=== PATIENT | male | born 1985 | race Caucasian/White ===

== ENCOUNTER 2017-12-06 14:48 | Emergency (ER) | payer SELFPAY ==
--- NOTE | 2017-12-06 15:17 | EDM.PDOC ---
ED HPI GENERAL MEDICAL PROBLEM - General Chief Complaint: Upper Extremity Injury/Pain Stated Complaint: LEFT SHOULDER PAIN Time Seen by Provider: 12/06/17 15:12 Source of Information: Reports: Patient History Limitations: Reports: No Limitations - History of Present Illness INITIAL COMMENTS - FREE TEXT/NARRATIVE: Awoke with left shoulder pain this morning. Possible work injury, was "pulling metal pipe" yesterday, did not experience pain though until this morning. Pain worse with movement. Did not take OTC medication. Patient is left hand dominant. Onset: Today Duration: Day(s): (1) Location: Reports: Upper Extremity, Left Severity: Mild Associated Symptoms: Denies: Chest Pain Treatments TAXICAB DISPATCHER: Denies: Acetaminophen, NSAIDS Past Medical History Cardiovascular History: Reports: None Musculoskeletal History: Reports: None Psychiatric History: Reports: Anxiety Social & Family History - Tobacco Use Smoking Status *Q: Never Smoker - Alcohol Use Alcohol Use History: Yes Alcohol Use Frequency: Rarely - Recreational Drug Use Recreational Drug Use: Yes Recreational Drug Type: Reports: Marijuana/Hashish Review of Systems - Review of Systems Review Of Systems: ROS reveals no pertinent complaints other than HPI. ED EXAM, GENERAL - Physical Exam Exam: See Below Exam Limited By: No Limitations General Appearance: Alert, WD/WN, No Apparent Distress Ears: Normal External Exam Nose: Normal Inspection Throat/Mouth: No Airway Compromise Head: Atraumatic, Normocephalic Neck: Full Range of Motion Respiratory/Chest: No Respiratory Distress, Lungs Clear, Normal Breath Sounds Cardiovascular: Regular Rate, Rhythm, No Murmur Peripheral Pulses: 2+: Radial (L) Extremities: Other (point tenderness to left anterior shoulder, no deformity, decreased active ROM due to pain) Neurological: Alert, Oriented, Normal Cognition, No Motor/Sensory Deficits Psychiatric: Normal Affect, Normal Mood Skin Exam: Warm, Dry, Intact, Normal Color, No Rash Course - Orders/Labs/Meds Orders: Active Orders 24 hr Category Date Time Status Shoulder Comp Lt [CR] Stat Exams 12/06/17 15:10 Ordered - Radiology Interpretation Free Text/Narrative:: Left Shoulder XR: NAD Departure - Departure Time of Disposition: 15:27 Disposition: Home, Self-Care 01 Condition: Good Clinical Impression: Left shoulder strain Qualifiers: Encounter type: initial encounter Qualified Code(s): S46.912A - Strain of unspecified muscle, fascia and tendon at shoulder and upper arm level, left arm , initial encounter - Discharge Information *PRESCRIPTION DRUG MONITORING PROGRAM REVIEWED*: No *COPY OF PRESCRIPTION DRUG MONITORING REPORT IN PATIENT ANT: Not Applicable Instructions: Subscapularis Tendon Injury Forms: ED Department Discharge, ED Return to Work/School Form Additional Instructions: OTC Ibuprofen 600mg every 6 hours as needed. Do rotator cuff strengthening exercises. Off work today. Follow up with orthopedic surgery in 1 week if symptoms don't improve. - My Orders Last 24 Hours: My Active Orders 12/06/17 15:10 Shoulder Comp Lt [CR] Stat - Assessment/Plan Last 24 Hours: My Active Orders 12/06/17 15:10 Shoulder Comp Lt [CR] Stat
--- NOTE | 2017-12-07 10:50 | CR ---
INDICATION: Pain that started yesterday, no known injury. LEFT SHOULDER: Three views of the left shoulder were obtained 12/06/2017 - no comparisons. No bone or joint abnormality was identified. If symptoms persist, additional examination such as MRI of the shoulder, may be helpful. DALI
== END 2017-12-06 15:44 | disposition home or self-care (01) ==
LOC: FB.ED 14:48
DX: S46.912A Strain of unspecified muscle, fascia and tendon at shoulder and upper arm level, left arm, initial encounter (principal); X50.0XXA Overexertion from strenuous movement or load, initial encounter
CPT/HCPCS: 73030-LT; 99283

== ENCOUNTER 2017-12-28 17:59 | Emergency (ER) | payer SELFPAY ==
--- NOTE | 2017-12-28 19:57 | EDM.PDOC ---
ED HPI GENERAL MEDICAL PROBLEM - General Chief Complaint: Gastrointestinal Problem Stated Complaint: Diarrhea Time Seen by Provider: 12/28/17 19:55 Source of Information: Reports: Patient History Limitations: Reports: No Limitations - History of Present Illness INITIAL COMMENTS - FREE TEXT/NARRATIVE: Developed N/V/D at 3am today. Vomiting has resolved, diarrhea persists. Able to keep gatorade down. Feels generally weak. Denies abdominal pain. Onset: Today Duration: Day(s): (1) Severity: Mild - Related Data Allergies Allergy/AdvReac Type Severity Reaction Status Date / Time No Known Allergies Allergy Verified 12/06/17 15:33 Home Meds: Home Meds NK [No Known Home Meds] 12/06/17 [History] Past Medical History Other HEENT History: jaw surgery Cardiovascular History: Reports: None Musculoskeletal History: Reports: Fracture Other Musculoskeletal History: hx fx jaw Psychiatric History: Reports: Anxiety, Panic Attack Endocrine/Metabolic History: Reports: Obesity/BMI 30+ - Infectious Disease History Infectious Disease History: Reports: Chicken Pox - Past Surgical History HEENT Surgical History: Reports: Other (See Below) Other HEENT Surgeries/Procedures: jaw surgery Musculoskeletal Surgical History: Reports: None Social & Family History - Family History Family Medical History: Noncontributory - Tobacco Use Smoking Status *Q: Never Smoker - Caffeine Use Caffeine Use: Reports: Coffee, Energy Drinks - Alcohol Use Alcohol Use History: No - Recreational Drug Use Recreational Drug Use: No ED ROS GENERAL - Review of Systems Review Of Systems: ROS reveals no pertinent complaints other than HPI. ED EXAM, GI/ABD - Physical Exam Exam: See Below Exam Limited By: No Limitations General Appearance: Alert, WD/WN, No Apparent Distress Ears: Normal External Exam Nose: Normal Inspection Throat/Mouth: No Airway Compromise Head: Atraumatic Neck: Full Range of Motion Respiratory/Chest: No Respiratory Distress, Lungs Clear, Normal Breath Sounds Cardiovascular: Regular Rate, Rhythm, No Murmur, No Rub GI/Abdominal Exam: Normal Bowel Sounds, Soft, Tender (mild suprapubic) (Male) Exam: Deferred Rectal (Males) Exam: Deferred Back Exam: Full Range of Motion Extremities: Normal Range of Motion Neurological: Alert, Oriented, No Motor/Sensory Deficits Psychiatric: Normal Affect, Normal Mood Course - Vital Signs Last Recorded V/S: Last Vital Signs Temp 36.7 C 12/28/17 18:35 Pulse 78 12/28/17 18:35 Resp 18 12/28/17 18:35 BP 138/82 12/28/17 18:35 Pulse Ox 98 12/28/17 18:35 - Orders/Labs/Meds Labs: Laboratory Tests 12/28/17 12/28/17 Range/Units 20:00 20:00 WBC 7.0 (4.5-12.0) X10-3/uL RBC 5.34 (4.30-5.75) x10(6)uL Hgb 16.4 H (11.5-15.5) g/dL Hct 47.9 (30.0-51.3) % MCV 89.7 (80-96) fL MCH 30.7 (27.7-33.6) pg MCHC 34.2 (32.2-35.4) g/dL RDW 12.3 (11.5-15.5) % Plt Count 286 (125-369) X10(3)uL MPV 8.7 (7.4-10.4) fL Neut % (Auto) 56.3 (46-82) % Lymph % (Auto) 35.1 (13-37) % [place] % (Auto) 6.2 (4-12) % Eos % (Auto) 2 (1.0-5.0) % Baso % (Auto) 1 (0-2) % Neut # (Auto) 4.0 (1.6-8.3) # Lymph # (Auto) 2.5 (0.6-5.0) # [place] # (Auto) 0.4 (0.0-1.3) # Eos # (Auto) 0.1 (0.0-0.8) # Baso # (Auto) 0.0 (0.0-0.2) # Sodium 138 (135-145) mmol/L Potassium 4.0 (3.5-5.3) mmol/L Chloride 105 (100-110) mmol/L Carbon Dioxide 28 (21-32) mmol/L BUN 12 (7-18) mg/dL Creatinine 0.9 (0.70-1.30) mg/dL Est Cr Clr Drug Dosing 108.30 mL/min Estimated GFR (MDRD) > 60 (>60) BUN/Creatinine Ratio 13.3 (9-20) Glucose 105 (80-116) mg/dL Calcium 8.8 (8.6-10.2) mg/dL Total Bilirubin 0.3 (0.1-1.3) mg/dL AST 17 (5-25) IU/L ALT 38 H (12-36) U/L Alkaline Phosphatase 102 (56-112) IU/L Total Protein 7.2 (6.0-8.0) g/dL Albumin 3.5 (3.5-5.2) g/dL Globulin 3.7 g/dL Albumin/Globulin Ratio 1.0 Departure - Departure Time of Disposition: 21:01 Disposition: Home, Self-Care 01 Condition: Good Clinical Impression: Gastroenteritis - Discharge Information *PRESCRIPTION DRUG MONITORING PROGRAM REVIEWED*: No *COPY OF PRESCRIPTION DRUG MONITORING REPORT IN PATIENT ANT: Not Applicable Instructions: Viral Gastroenteritis, Adult, [id number] Referrals: PCP,Not In Area [Primary Care Provider] - Forms: ED Department Discharge, ED Return to Work/School Form Additional Instructions: Clear fluids, advance as tolerated. Off work tomorrow. Rest. Follow up as needed.
== END 2017-12-28 21:10 | disposition home or self-care (01) ==
LOC: FB.ED 17:59
DX: K52.9 Noninfective gastroenteritis and colitis, unspecified (principal)
CPT/HCPCS: 36415; 80053; 85025; 99283